=== PATIENT | male | born 1980 | race Caucasian/White ===

== ENCOUNTER → 2016-07-31 | Outpatient (CLI) | payer OTHER ==
--- NOTE | 2016-07-31 11:19 | ECHOS ---
DATE OF SERVICE: 07/31/2016 AGE: 35Y SEX: M HT: 74" WT: 266 lbs. Protocol Emil: X Others: Stress Echo Stage: 3 Dur. of Exercise: 9:00 *Heart Rate Blood Pressure *Rest: 94 Rest: 116/57 * *Max. Achieved: 162 Maximum BP: 193/49 85% PMHR: 156 100% PMHR: 184 *METS: 10.4 INDICATIONS: Chest pain. MEDICATIONS: Nimitz, ibuprofen. Patient was exercised for a total period of 9 minutes. Peak heart rate of 162 was achieved. Maximum blood pressure of 193/49 mmHg was noted. Resting EKG shows normal sinus rhythm with normal LA interval and QRS duration and normal ST-T waves. No ST segment depression suggestive of ischemia is noted. The baseline echocardiographic images reveal a normal left ventricular chamber size with normal left ventricular systolic function. In the immediate postexercise period, normal increase in the wall thickness and contractility is noted. IMPRESSION: 1. This stress echocardiographic study is negative for stress-induced ischemia. 2. EKG portion of the stress test is not suggestive of ischemia. 3. Patient's exercise tolerance is normal.
== END ==
LOC: RADNMMAIN 09:48
PROVIDERS: ATTEND Family Medicine
DX: R07.9 Chest pain, unspecified (principal); I49.3 Ventricular premature depolarization
CPT/HCPCS: 93017; 93225; 93226; 93350

== ENCOUNTER → 2017-11-05 | Outpatient (CLI) | payer OTHER ==
--- NOTE | 2017-11-05 11:03 | US ---
EXAMINATION TYPE: US abdomen limited DATE OF EXAM: 11/05/2017 COMPARISON: None CLINICAL HISTORY: R10.12 LUQ abdominal pain. EXAM MEASUREMENTS: Liver Length: 16.6 cm Gallbladder Wall: 0.3 cm CBD: 0.4 cm Right Kidney: 9.7 x 4.8 x 5.0 cm Patient of large body habitus Pancreas: not well visualized due to overlying bowel gas, appears wnl as sen Liver: Increased attenuation, decreased visualization of vessels suggestive of fatty infiltrate, upp er limits of normal in size Gallbladder: there appears to be some dependant sludge within CBD: wnl Right Kidney: wnl There is no ascites. IMPRESSION: Exam somewhat limited. Correlate for possible hepatic steatosis. Possible tumefactive slu dge within the gallbladder.
--- NOTE | 2017-11-05 11:48 | FL ---
EXAMINATION TYPE: FL UGI air DATE OF EXAM: 11/05/2017 COMPARISON: NONE HISTORY: Left upper quadrant Abdominal pain ( R 10.12) per order. Severe left upper quadrant pain wor se when eating per patient. TECHNIQUE: A double contrast UGI study is performed. 55 seconds of fluoroscopic time was utilized. 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 The esophagus shows satisfactory motility and emptying into the stomach. There are small sliding-type hiatal hernia. No intraluminal mass or focal stricture is evident. The stomach shows satisfactory distensibility and peristalsis. There is mild thickening of gastric fo lds towards the fundus without martina ulcer disease. No suspicious intraluminal mass is present. Lea ral episodes of gastroesophageal reflux up to mid esophageal level were seen during performance of ex am. The duodenal bulb, sweep, and proximal small bowel loops are unremarkable. IMPRESSION: Mild fundal gastritis. Small sliding-type hiatal hernia with documented gastroesophageal reflux.
== END | disposition home or self-care (01) ==
LOC: RADUSMAIN 08:51
PROVIDERS: ATTEND Family Medicine
DX: K44.9 Diaphragmatic hernia without obstruction or gangrene (principal); K29.50 Unspecified chronic gastritis without bleeding; K21.9 Gastro-esophageal reflux disease without esophagitis; R10.12 Left upper quadrant pain; Z88.8 Allergy status to other drugs, medicaments and biological substances; Z91.030 Bee allergy status
CPT/HCPCS: 74246; 76705

== ENCOUNTER → 2017-11-19 | Outpatient (CLI) | payer OTHER ==
--- NOTE | 2017-11-19 09:49 | NM ---
Nuclear medicine hepatobiliary scan. HISTORY: Pain. DOSAGE: The patient seated 8 ounces of ensure plus and 5.2 mCi of Technetium 99m Choletec. FINDINGS: There is normal hepatic extraction. The gallbladder is seen by 10 minutes. There is bilia ry to bowel clearance not seen by 60 minutes. Ejection fraction is 92%. IMPRESSION: 1. Ejection fraction of 92% can be associated with hyperdynamic gallbladder correlate clinically. 2. Delayed biliary to bowel clearance.
== END | disposition home or self-care (01) ==
LOC: RADNMMAIN 06:39
PROVIDERS: ATTEND Family Medicine
DX: K82.9 Disease of gallbladder, unspecified (principal)
CPT/HCPCS: 78226; A9537

== ENCOUNTER → 2017-11-25 | Outpatient (CLI) | payer OTHER ==
--- NOTE | 2017-11-07 10:02 | CT ---
EXAMINATION TYPE: CT discontinued procedure DATE OF EXAM: 11/06/2017 Patient is rescheduled. Retained barium present, exam aborted.
--- NOTE | 2017-11-25 14:49 | CT ---
EXAMINATION TYPE: CT abdomen w con DATE OF EXAM: 11/25/2017 COMPARISON: None INDICATION: Right upper Quadrant pain, Feels like swelling on left side but pain is on the right. DLP: 1223 mGycm, Automated exposure control for dose reduction was used. CONTRAST: 100 mL of Isovue 300. Study performed with Oral Contrast TECHNIQUE: Axial images were obtained from above the diaphragm to the pubic rami in the axial plane a t 5 mm thick sections. Reconstructed images are reviewed on the computer in the coronal plane. FINDINGS: Limited CT sections are obtained the lung bases. The lung bases are clear. CT ABDOMEN: Hiatal hernia is present. Liver: Normal Spleen: Normal Pancreas: Normal Adrenal glands: The adrenal glands are normal. Gallbladder: Normal Kidneys: No masses are evident. No hydronephrosis is present. No cysts are present. There is a 0.4 cm calcification inferior pole left kidney without hydronephrosis. Aorta: Vascular calcification is within the aorta. Inferior vena cava: Normal. Loops of bowel as visualized without contrast are unremarkable. IMPRESSIONS: 1. Nonobstructing inferior pole left renal stone
== END | disposition home or self-care (01) ==
LOC: RADCTMAIN 11-06 17:02
PROVIDERS: ATTEND Family Medicine
DX: N20.0 Calculus of kidney (principal); Z88.5 Allergy status to narcotic agent; Z91.030 Bee allergy status
CPT/HCPCS: 74160; 76380; Q9967

== ENCOUNTER → 2019-01-27 | Outpatient (CLI) | payer OTHER ==
--- NOTE | 2019-01-27 11:27 | US ---
EXAMINATION TYPE: US carotid duplex BILAT DATE OF EXAM: 01/27/2019 COMPARISON: NONE CLINICAL HISTORY: R27.0 ataxia R55 syncope. EXAM MEASUREMENTS: RIGHT: Peak Systolic Velocity (PSV) cm/sec ----- Right CCA: 79.1 ----- Right ICA: 97.9 ----- Right ECA: 99.8 ICA/CCA ratio: 1.2 RIGHT: End Diastole cm/sec ----- Right CCA: 24.8 ----- Right ICA: 46.1 ----- Right ECA: 18.9 LEFT: Peak Systolic Velocity (PSV) cm/sec ----- Left CCA: 85.0 ----- Left ICA: 104.4 ----- Left ECA: 87.4 ICA/CCA ratio: 1.2 LEFT: End Diastole cm/sec ----- Left CCA: 28.0 ----- Left ICA: 49.5 ----- Left ECA: 15.2 VERTEBRALS (direction of flow): Right Vertebral: Antegrade Left Vertebral: Antegrade Rhythm: Normal IMPRESSION: 1. No significant hemodynamic stenosis as visualized. Criteria for Assigning % of Stenosis / Diameter reduction (Estimation based on the indirect measurements of the internal carotid artery velocities (ICA PSV). 1. Normal (no stenosis)=ICA PSV < 125 cm/s: ratio < 2.0: ICA EDV<40 cm/s. 2. Less than 50% stenosis=ICA PSV < 125 cm/s: ratio < 2.0: ICA EDV<40 cm/s. 3. 50 to 69% stenosis=ICA PSV of 125 to 230 cm/s: ration 2.0 ? 4.0: ICA EDV 40-100 cm/s. 4. Greater than 70% stenosis to near occlusion= ICA PSV > 230 cm/s: ratio > 4.0: ICA EDV > 100 cm/s. 5. Near occlusion= ICA PSV velocities may be low or undetectable: variable ratio and ICA EDV. 6. Total occlusion=unable to detect flow.
== END | disposition home or self-care (01) ==
LOC: RADUSMAIN 09:08
PROVIDERS: ATTEND Family Medicine
DX: R27.0 Ataxia, unspecified (principal); R55 Syncope and collapse; Z91.030 Bee allergy status; Z88.8 Allergy status to other drugs, medicaments and biological substances
CPT/HCPCS: 93225; 93226; 93880

== ENCOUNTER → 2019-02-22 | Outpatient (CLI) | payer OTHER ==
--- NOTE | 2019-02-23 07:55 | ECHOS ---
STRESS ECHOCARDIOGRAM INDICATIONS: Syncope MEDICATIONS: Benazepril, omeprazole. BASELINE HEART RATE: 85 BASELINE BLOOD PRESSURE: 115/50 MAXIMUM HEART RATE: 160 MAXIMUM BLOOD PRESSURE: 199/74 85% MPHR: 154 100% MPHR: 181 METS: 9.5 MAXIMUM STAGE REACHED: 3 TOTAL EXERCISE TIME: 8:00 CLINICAL INFORMATION: Baseline EKG revealed normal sinus rhythm without significant ST changes. Patient walked for 8 minutes, achieved a maximal heart rate of 160 beats per minute which is well above 85% of predicted maximal, developed fatigue and shortness of breath but did not have any angina or arrhythmia. EKG did not reveal any ST-segment changes to indicate ischemia. By EKG criteria, this is a negative stress test with fair exercise capacity. Baseline echo images revealed normal wall motion wall thickening of all segments. Imaging contrast was used to enhance the quality of images. At peak exercise, there was good augmentation of left ventricular wall motion and wall thickening of all segments suggesting that there is no evidence of stress-induced ischemia on this study. IMPRESSION: 1. Fair exercise capacity with a negative stress test by EKG criteria. 2. Normal stress echocardiogram. contrast was used to enhance the images. MMODL / IJN: [id number] /
== END | disposition home or self-care (01) ==
LOC: RADNMMAIN 08:47
PROVIDERS: ATTEND Family Medicine
DX: R55 Syncope and collapse (principal)
CPT/HCPCS: C8930; Q9950; 93351

== ENCOUNTER → 2019-02-26 | Outpatient (CLI) | payer OTHER | LOC: RADMRIMAIN 09:48 | PROVIDERS: ATTEND Family Medicine | DX: Z53.9 Procedure and treatment not carried out, unspecified reason (principal) ==

== ENCOUNTER → 2019-06-01 | Outpatient (CLI) | payer OTHER | END | disposition home or self-care (01) | LOC: RADMRIMAIN 10:31 | PROVIDERS: ATTEND Family Medicine | DX: Z53.9 Procedure and treatment not carried out, unspecified reason (principal) ==

== ENCOUNTER → 2021-11-06 | Outpatient (CLI) | payer OTHER | END | disposition home or self-care (01) | LOC: RADECHMAIN 12:22 | PROVIDERS: ATTEND Family Medicine | DX: R00.0 Tachycardia, unspecified (principal); R55 Syncope and collapse | CPT/HCPCS: 93270 ==